=== PATIENT | female | born 1970 | race Caucasian/White ===

== ENCOUNTER 2021-04-01 12:44 | Outpatient (CLI) | payer OTHER ==
[2021-04-01 13:58] LABS: APPEARANCE,URINE CLEAR (CLEAR); BILIRUBIN,URINE NEGATIVE (NEGATIVE); BLOOD, URINE NEGATIVE (NEGATIVE); COLOR,URINE YELLOW (YELLOW); LEUKOCYTE ESTERASE ,URINE NEGATIVE (NEGATIVE); NITRITE, URINE NEGATIVE (NEGATIVE); PH,URINE 5.5 (5.0-9.0); UGLUCOSE NEGATIVE (NEGATIVE)
[2021-04-01 14:10] LABS: BASOPHILS % (AUTO) 0.4 % (0.0-2.0); EOSINOPHILS # (AUTO) 0.1 K/uL (0-0.4); EOSINOPHILS % (AUTO) 1.6 % (0.0-4.0); HEMATOCRIT 40.4 % (36-48); HEMOGLOBIN 13.4 g/dL (12.0-16.0); LYMPHOCYTES # (AUTO) 1.7 K/uL (2.5-16.5); LYMPHOCYTES % (AUTO) 28.8 % (20.5-51.1); MEAN CORPUSCULAR HEMOGLOBIN 29 pg (27-31); MEAN CORPUSCULAR HGB CONC 33 g/dL (33-37); MEAN CORPUSCULAR VOLUME 88.2 fL (80-94); MONOCYTES # (AUTO) 0.5 K/uL (0.8-1.0); MONOCYTES % (AUTO) 7.7 % (1.7-9.3); NEUTROPHILS # (AUTO) 3.7 K/uL (1.8-7.7); NEUTROPHILS % (AUTO) 61.5 % (42.2-75.2); PLATELET COUNT (AUTO) 267 K/uL (140-450); RED BLOOD CELL COUNT(AUTO) 4.58 MIL/uL (4.20-5.40); WHITE BLOOD COUNT (AUTO) 6.1 K/uL (4.8-10.8)
[2021-04-01 14:23] LABS: ALBUMIN 3.6 g/dL (3.4-5.0); ANION GAP 12.8 (8-16); CREATININE 0.7 mg/dL (0.6-1.3); POTASSIUM 3.8 mmol/L (3.5-5.1); THYROID STIMULATING HORMONE 1.35 uIU/mL (0.34-3.74); TOTAL BILIRUBIN 0.6 mg/dL (0.0-1.0)
[2021-04-02 17:51] LABS: ESTRADIOL SERUM <5.0 pg/mL; T4 (THYROXINE) 8.7 ug/dL (4.5 - 12.0)
[2021-04-02 17:52] LABS: THYROID PEROXIDASE (TPO) AB <8 IU/mL (0 - 34); TRIIODOTHYRONINE FREE 2.8 pg/mL (2.0 - 4.4)
== END 2021-04-01 19:49 | disposition home or self-care (01) ==
LOC: MLB 12:44
PROVIDERS: ATTEND Obstetrics & Gynecology
DX: R30.9 Painful micturition, unspecified (principal); N95.1 Menopausal and female climacteric states
CPT/HCPCS: 36415; 80053; 81003; 82306; 82607; 82670; 83001; 84403; 84436; 84443; 84481; 85025; 86376